=== PATIENT | female | born 1990 | race Caucasian/White ===

== ENCOUNTER 2018-02-09 14:38 | Outpatient (CLI) | payer OTHER, SELFPAY ==
[2018-02-09 16:06] LABS: Anion Gap 10.7 mmol/L (3-11); BUN 12 mg/dL (7-18); CO2 26.3 mmol/L (21.0-32.0); CREATININE 0.83 mg/dL (0.55-1.02); Calcium 9.6 mg/dL (8.5-10.1); Chloride 101 mmol/L (98-107); Glucose 80 mg/dL (70-100); Potassium 4.1 mmol/L (3.5-5.1); Sodium 138 mmol/L (136-145)
== END 2018-02-09 14:58 ==
LOC: LBO 14:46 → LBN 14:46
PROVIDERS: PCP Nurse Practitioner; Visit Provider Nurse Practitioner
DX: L70.9 Acne, unspecified (principal)
CPT/HCPCS: 36415; 80048

== ENCOUNTER 2018-02-09 18:20 | Outpatient (REF) | payer OTHER, SELFPAY ==
--- NOTE | 2018-02-09 14:20 | PAPFT_PTH ---
PATIENT: LANA LYONS LOC: [facility] U#:[id number] AGE/SX: 27/F ROOM: RE02/09/[address]: Marla Solorzano APRN : 1990 BED: DIS: 02/09/2018 SPEC #: [id number] RECD: 02/09/18 18:24 STATUS: TIMOTEO REMaria Del Carmen #: [id number] ISRRAEL: 02/09/18 14:[address]: Marla Solorzano [facility]PT[facility] Cytology RECD BY: Candy Mcfarlane Tissues: 1 - CX/ENDOCX FOR PAP SMEARS Procedures: PAP THIN PREP/[facility] Screening HPV DNA PROBE Comments: [id number]
== END 2018-02-09 18:40 ==
LOC: LBN 18:20
PROVIDERS: PCP Nurse Practitioner; Visit Provider Nurse Practitioner
DX: Z12.4 Encounter for screening for malignant neoplasm of cervix (principal)
CPT/HCPCS: 88142; 87624

== ENCOUNTER 2018-03-02 15:08 | Outpatient (REF) | payer OTHER, SELFPAY ==
--- NOTE | 2018-03-02 14:30 | ENDO_PTH ---
PATIENT: LANA LYONS LOC: [facility] U#:[id number] AGE/SX: 27/F ROOM: RE03/02/[address]: Anna Butler MD : 1990 BED: DIS: 03/02/2018 SPEC #: [id number] RECD: 03/02/18 17:55 STATUS: TIMOTEO REMaria Del Carmen #: [id number] ISRRAEL: 03/02/18 14:[address]: Anna Butler DEPT: Surgical Specimen RECD BY: Candy Mcfarlane ENTERED: 03/02/18 17:57 SP TYPE: Endo OTHR DR: Marla Solorzano APRN Tissues: 1 - ENDOCERVICAL BX/CURRETTE 2 - CERVICAL BIOPSY 3 - CERVICAL BIOPSY Procedures: GROSS AND MICRO LEVEL 4 Comments: [id number]
== END 2018-03-02 15:28 ==
LOC: LBN 15:08
PROVIDERS: PCP Nurse Practitioner; Visit Provider Obstetrics & Gynecology
DX: N88.8 Other specified noninflammatory disorders of cervix uteri (principal); R87.610 Atypical squamous cells of undetermined significance on cytologic smear of cervix (ASC-US); B97.7 Papillomavirus as the cause of diseases classified elsewhere
CPT/HCPCS: 88305

== ENCOUNTER 2018-06-08 12:00 | Outpatient (CLI) | payer OTHER, SELFPAY ==
--- NOTE | 2018-06-08 12:03 | DI.RAD_ITS ---
SYMPTOMS/DIAGNOSIS: BACK PAIN LT MID BACK, WORSE WITH INSPIRATION, M54.9, DORSALGIA, ? SCOLIOSIS PA AND LATERAL CHEST: No priors. The heart is normal in size. The lungs are clear. The mediastinal structures and pleura appear intact. CONCLUSION: Normal chest.
== END 2018-06-08 12:20 ==
PROVIDERS: PCP Nurse Practitioner; Visit Provider Nurse Practitioner
DX: M54.89 Other dorsalgia (principal); R07.1 Chest pain on breathing
CPT/HCPCS: 71046